=== PATIENT | female | born 1955 | race Caucasian/White ===

== ENCOUNTER → 2020-11-14 | Day surgery (SDC) | payer OTHER | LOC: MSO 08:34 | DX: H26.9 Unspecified cataract (principal); H31.012 Macula scars of posterior pole (postinflammatory) (post-traumatic), left eye; H40.9 Unspecified glaucoma; G47.33 Obstructive sleep apnea (adult) (pediatric); R73.03 Prediabetes; D64.9 Anemia, unspecified; I10 Essential (primary) hypertension; F41.9 Anxiety disorder, unspecified; Z79.891 Long term (current) use of opiate analgesic; Z87.891 Personal history of nicotine dependence; Z99.89 Dependence on other enabling machines and devices; Z85.820 Personal history of malignant melanoma of skin; Z79.82 Long term (current) use of aspirin; Z79.890 Hormone replacement therapy | CPT/HCPCS: 00142; J0171; J2250; J2370; V2632 ==